=== PATIENT | male | born 1960 | race Caucasian/White ===

== ENCOUNTER → 2020-08-10 | Outpatient (CLI) | payer BC ==
--- NOTE | 2020-08-10 15:31 | CTL ---
EXAMINATION TYPE: CT Low Dose Lung DATE OF EXAM ORDERED: 08/10/2020 HISTORY: Personal tobacco history use. Lung cancer screening CT DLP: 130.[address] CTDI: 3.5 mGy Automated exposure control for dose reduction was used. SCREENING VISIT: Initial COMPARISON: None TECHNIQUE: Low dose computed tomography scan was performed through the chest at 1 mm thick sections a nd reconstructed images in the coronal plane at [address] DIAGNOSTIC QUALITY: Satisfactory FINDINGS: LUNG NODULES: Present, detailed below: There is a 0.7 x 1.2 cm peripheral posterior lateral right apical density. Consider PET CT for additi onal evaluation. This is not well-visualized on the mediastinal windows. There is some mild thickening along the major fissure on the right. Series 4 image 160. This is at th e 0.5 cm. LUNGS: COPD: Severity: Normal Fibrosis: Severity: Normal Lymph nodes: Normal Other findings: None RIGHT PLEURAL SPACE: Effusion: Normal Calcification: Normal Thickening: Normal Pneumothorax: Normal LEFT PLEURAL SPACE: Effusion: Normal Calcification: Normal Thickening: Normal Pneumothorax: Normal HEART: Heart Size: Normal Coronary calcification: Mild Pericardial effusion: None OTHER FINDINGS: Upper abdomen: Normal Bony thorax: Normal Supraclavicular region: Normal Other: Ascending thoracic aorta at the level the main pulmonary artery measures 4.3 cm. The main pul monary artery at the bifurcation measures 2.9 cm. IMPRESSION: 0.7 x 1.2 cm nodule in the periphery of the right lateral apex. Additional workup with PE T CT is recommended. FOLLOW UP CT CHEST RECOMMENDATION: PET/CT CT LUNG RAD: 4
== END | disposition home or self-care (01) ==
LOC: RADCTMAIN 07:05
PROVIDERS: ATTEND Family Medicine
DX: Z12.2 Encounter for screening for malignant neoplasm of respiratory organs (principal); R91.1 Solitary pulmonary nodule; F17.210 Nicotine dependence, cigarettes, uncomplicated

== ENCOUNTER → 2020-09-02 | Outpatient (CLI) | payer BC ==
--- NOTE | 2020-09-04 11:46 | PE ---
Nuclear medicine PET/CT HISTORY: Abnormal CT scan, lung nodule, R 91.1 Patient received 10.8 mCi F-18 FDG intravenously in delayed scanning was performed from skull base to the mid thighs. Localization and attenuation correction CT scan was performed. Correlation to CT scan dated 08/10/2020 Chest and neck: The apical density seen on CT scan is likely related to pleural thickening, there is no associated hypermetabolic uptake. Additional nodular density seen within the right middle lobe reg ion along the fissure and is benign, no associated hypermetabolic uptake. There is no pleural pericar dial effusion. There is no supraclavicular, cervical adenopathy. No mediastinal, axillary, or hilar a denopathy. There are coronary calcifications present. ABDOMEN: No suspicious uptake. No retroperitoneal adenopathy or adrenal mass, no liver mass. No ascit es. Diverticular changes associated with the sigmoid colon. Osseous structures are remarkable for degenerative change, facet arthropathy in the lumbar spine. IMPRESSION: No suspicious uptake. Benign exam.
== END | disposition home or self-care (01) ==
LOC: RADPETMAIN 07:20
PROVIDERS: ATTEND Family Medicine
DX: R91.1 Solitary pulmonary nodule (principal)
CPT/HCPCS: 78815; A9552

== ENCOUNTER 2021-11-16 07:07 | Day surgery (SDC) | payer BC ==
[2021-11-14 12:23] VITALS: BMI 30.8
[2021-11-16 08:30] VITALS: TEMP 97.8
[2021-11-16] MEDS ORDERED: LIDOCAINE 1% (10MG/ML) FOR IV START INTRADERMA ONE (08:42)
[2021-11-16] MEDS: LACTATED RINGERS 1,000 ML IV SCH ×2 (08:42→09:20)
[2021-11-16] MEDS ORDERED: PROPOFOL 10 MG/ML 20 ML VIAL IV ONE (09:25)
--- NOTE | 2021-11-16 09:36 | P.PCN ---
Date of Procedure: 11/16/21 Procedure(s) Performed: BRIEF HISTORY: Patient is a 61-year-old pleasant white male scheduled for an elective colonoscopy as a part of screening for colon cancer. His last colonoscopy was 10 years ago. PROCEDURE PERFORMED: Colonoscopy. PREOPERATIVE DIAGNOSIS: Screening for colon cancer. IV sedation per Anesthesia. PROCEDURE: After informed consent was obtained, the patient, was brought into the endoscopy unit. IV sedation was administered by Anesthesia under continuous monitoring. Digital rectal examination was normal. Initially the Olympus CF-160 flexible video colonoscope was then inserted in the rectum, gradually advanced into the cecum without any difficulty. Careful examination was performed as the scope was gradually being withdrawn. Ileocecal valve and the appendiceal orifice were visualized and appeared normal. Prep was excellent. Mucosa of the cecum, ascending colon, transverse colon, descending colon, sigmoid colon, and rectum appeared normal. At her sigmoid diverticulosis. Retroflexion was performed in the rectum and all internal hemorrhoids were seen. The patient tolerated the procedure well. IMPRESSION: Normal-appearing colon from rectum to cecum with no evidence of colorectal neoplasia. Scattered sigmoid diverticulosis Small internal hemorrhoids RECOMMENDATIONS: Findings of this examination were discussed with the patient as well as a family. He was advised to have a repeat screening colonoscopy in 10 years..
[2021-11-16 09:59] VITALS: BP 126/72; PULSE 66; RESP 16
== END 2021-11-16 10:12 | disposition home or self-care (01) ==
LOC: ORWHC2ENDO 07:07
PROVIDERS: ATTEND Internal Medicine Gastroenterology
DX: Z12.11 Encounter for screening for malignant neoplasm of colon (principal); K57.30 Diverticulosis of large intestine without perforation or abscess without bleeding; K64.8 Other hemorrhoids
CPT/HCPCS: 45378; J2704